=== PATIENT | female | born 1950 | race Caucasian/White ===

== ENCOUNTER 2016-12-12 12:36 | Inpatient (IN) | payer MEDICARE, MEDICAID ==
[~2016-12-12] VITALS: Ht 165.1 cm; Wt 54.4 kg
[2016-12-12 14:30] VITALS: BP 123/63
[2016-12-12] MEDS ORDERED: OXYC10TA49 PO (15:02)
[2016-12-12] MEDS ORDERED: PREG100C PO (15:02)
[2016-12-12] MEDS ORDERED: NICO1PAT28 TD (15:02)
[2016-12-12] MEDS ORDERED: QUET100T PO (15:02)
[2016-12-12] MEDS ORDERED: TIZA4TAB4 PO (15:02)
[2016-12-12] MEDS ORDERED: TRAZ-147 PO (15:02)
[2016-12-12] MEDS ORDERED: TEMA15CA5 PO (15:02)
[2016-12-12] MEDS ORDERED: PANT40TA4 PO (15:02)
[2016-12-12] MEDS ORDERED: OXYC15TA2 PO (15:02)
[2016-12-12] MEDS ORDERED: SIMV10TA6 PO (15:02)
[2016-12-12] MEDS ORDERED: QUET25TA PO (15:04)
[2016-12-12] MEDS ORDERED: IPRA3AMP IH (15:29)
[2016-12-12] MEDS ORDERED: ENOX40DI SQ (15:29)
[2016-12-12] MEDS ORDERED: ALBU2.5V13 IH (15:29)
[2016-12-12] MEDS ORDERED: ONDA4TAB10 IVP (15:29)
[2016-12-12] MEDS ORDERED: OXYCODONE HCL 20 MG TAB.SR.12H PO SCH (15:30)
[2016-12-12] MEDS ORDERED: HYDROMORPHONE 1 MG/1 ML DISP.SYRIN IV ONE (15:45)
[2016-12-12] MEDS ORDERED: KETOROLAC TROMETHAMINE 30 MG INJ IVP STA (18:53)
[2016-12-12] MEDS ORDERED: KETOROLAC TROMETHAMINE 15 MG INJ IVP STA (18:59)
[2016-12-12] MEDS ORDERED: LORAZEPAM 1 MG TABLET PO PRN (19:15)
--- NOTE | 2016-12-12 19:30 | NUR ---
NEW ADMISSION. Received report from CHINYERE Rondon. Received patient in bed. Patient is alert and oriented verbally responsive. Able to make needs known. No c/o pain and discomfort at this time. No acute distress. No SOB. Patient kept clean and dry. Dressing intact with LALIT wrapped around right foot. No pitting edema noted. IV access on left hand. No infiltration noted. No redness or swelling. Dressing intact. Dr. Lewis in facility to evaluate patient. All needs attended to promptly. Call light within reach. Will continue to monitor.
[2016-12-12] MEDS ORDERED: PANTOPRAZOLE SODIUM 40 MG TABLET.DR PO PRN (19:45)
[2016-12-12] MEDS ORDERED: HYDROMORPHONE 2 MG/1 ML DISP.SYRIN IV STA (19:58)
[2016-12-12] MEDS ORDERED: MAGNESIUM HYDROXIDE 30 ML LIQUID UDC PO STA (20:09)
[2016-12-12] MEDS ORDERED: diphenhydrAMINE 25 MG CAP PO ONE (20:30)
--- NOTE | 2016-12-12 20:39 | NUR ---
Patient complaining of severe pain to right foot surgical site. Patient hysterically crying, grasping site and saying she is in a lot of pain. Assessed patient. Pain level is 9/10. Spoke to patient and tried to help calm her down. Dr. Lewis on unit and made aware of patients pain. MD evaluated patient with orders to give Dilaudid 2mg IV STAT x1. MD also ordered to Hold Restoril tonight and administer Ativan 1mg instead. New orders noted and carried out. Patient tolerated medication well. All needs attended to promptly. Call light within reach. Will continue to monitor.
[2016-12-12] MEDS: TRAZODONE 100 MG TABLET PO SCH (20:42)
[2016-12-12] MEDS: TIZANIDINE HCL 4 MG TABLET PO SCH (20:42)
[2016-12-12] MEDS: QUETIAPINE FUMARATE 100 MG TABLET PO SCH (20:42)
[2016-12-12] MEDS: SENNOSIDES 1 TABLET PO SCH (20:42)
[2016-12-12] MEDS ORDERED: DOXEPIN 10 MG CAPSULE PO SCH (21:00)
[2016-12-12] MEDS ORDERED: TEMAZEPAM 15 MG CAPSULE PO SCH (21:00)
[2016-12-12 21:41] VITALS: BP 145/80
[2016-12-13] MEDS: OXYCODONE HCL 20 MG TAB.SR.12H PO SCH ×2 (00:29→06:52)
[2016-12-13] MEDS: HYDROMORPHONE 1 MG/1 ML DISP.SYRIN IV PRN ×2 (04:56→09:28)
--- NOTE | 2016-12-13 04:56 | NUR ---
Patient woke up c/o pain. Pain level of 03/15. Dilaudid 1mg IVP give as ordered. Tolerated well. Breathing normally. All needs attended to promptly. Call light within reach. Will continue to monitor. Addendum: 12/13/16 at 0535 by SARA PEPE RN Patient sleeping comfortably at this time. Breathing normally. All needs attended to promptly. Call light within reach. Will continue to monitor.
--- NOTE | 2016-12-13 06:54 | NUR ---
Patient is awake and verbally responsive. Able to make needs known. Patient in no acute distress. No SOB. Breathing normally. AM care provided. Patient noted to be facial grimacing and crying. Verbalizes that she is in pain. Pain level of 9/10 and surgical site. Scheduled Oxycontin 20mg given. Tolerated well. Kept clean and dry. All needs attended to promptly. Call light within reach. Will continue to monitor.
[2016-12-13 08:00] VITALS: BP 135/78
[2016-12-13] MEDS ORDERED: SIMVASTATIN 10 MG TABLET PO SCH (09:00)
[2016-12-13] MEDS: ENOXAPARIN SODIUM 40 MG/0.4 ML DISP.SYRIN SQ SCH (09:00)
--- NOTE | 2016-12-13 09:00 | NUR ---
Patient was received awake sitting up in bed c/o pain in her right upper leg . She is alert and oriented x 2-3. She is on room air. Patient right leg is with and paulo wrap from surgery. Will continue to monitor the patient and address any needs she may have today.
[2016-12-13] MEDS: NICOTINE 21 MG/24HR PATCH TD SCH (09:27)
[2016-12-13] MEDS: PREGABALIN 100 MG CAPSULE PO SCH ×3 (09:27→18:04)
[2016-12-13] MEDS: QUETIAPINE FUMARATE 25 MG TABLET PO SCH ×3 (09:27→18:04)
[2016-12-13] MEDS: TIZANIDINE HCL 4 MG TABLET PO SCH ×2 (09:27→21:03)
[2016-12-13] MEDS: SENNOSIDES 1 TABLET PO SCH (09:38)
--- NOTE | 2016-12-13 09:40 | NUR ---
Called to the patient 's room , patient is crying c/o pain 9/10 in her right leg . Patient was medicated at this time from the PRN medication list. Patient refused to have nonmedication measures such as reposition or ice. Will continue to reassess patient for pain.
[2016-12-13] MEDS: HYDROMORPHONE HCL 2 MG TABLET PO PRN ×2 (10:46→14:48)
--- NOTE | 2016-12-13 10:50 | NUR ---
Dr. Lewis is on the floor at this time , he ordered for the patient to have Ativan 1mg and Dilaudid 4mg at this time . Medications given . Also he made changes with patient medication.
--- NOTE | 2016-12-13 11:00 | NUR ---
Order was placed for the patient to start Fentanyl Patch 50mcg. Pharmacist on floor at this time stated the dose was high. Dr. Lewis is on the floor at this time. He informed the pharmacist verbally , this is the dose he would like the patient to start with. Consulted with charge nurse Jeri and warehouse and receiving supervisor Bella. Was told by the warehouse and receiving supervisor to go with what the doctor ordered.
--- NOTE | 2016-12-13 11:36 | NUR ---
Patient refused Lovonox this am . Doctor made aware.
--- NOTE | 2016-12-13 11:40 | NUR ---
Patient states her pain is much better. She is working with PT at this time
[2016-12-13] MEDS: FENTANYL 50 MCG/HR PATCH TD SCH (12:20)
--- NOTE | 2016-12-13 13:20 | NUR ---
Patient is asleep at this time but she is arousable. States pain is not as bad
--- NOTE | 2016-12-13 14:20 | NUR ---
Patient is asleep but arousable BP is 130/78, HR 82 . Patient is on a new pain patch . Will continue to monitor the patient vital signs as well as pain,
--- NOTE | 2016-12-13 14:49 | NUR ---
Patient was asleep at 1300 , did not wake patient up. She woke up at this time and wanted her Lyrica and Quetiepine
--- NOTE | 2016-12-13 14:52 | NUR ---
Patient c/o pain 9/10 in right thigh. Pain medcation given from the PRN list at this time
--- NOTE | 2016-12-13 16:35 | NUR ---
Patient was asleep at 1300 so she did not get her 1300 dose of Lyrica , or Seroq. Gave medication late at 1449 when the patient woke up and asked to take them . Dr. Ng textile conversion manager was called and made aware.
--- NOTE | 2016-12-13 16:40 | NUR ---
Patient c/o pain and asked for more Dilaudid pills. Informed patient it was not time for any to take more pill. Offer patient to be reposition and also offered ice for leg. Patient refused.
--- NOTE | 2016-12-13 18:23 | NUR ---
Patient pulse ox at 1800 93% on room air.
[2016-12-13 20:50] VITALS: BP 105/63
[2016-12-13] MEDS: QUETIAPINE FUMARATE 100 MG TABLET PO SCH (21:03)
[2016-12-13] MEDS: TRAZODONE 100 MG TABLET PO SCH (21:03)
[2016-12-14] MEDS: HYDROMORPHONE HCL 2 MG TABLET PO PRN ×4 (04:30→21:34)
--- NOTE | 2016-12-14 06:51 | NUR ---
Patient alert and able to let needs known, slept well throughout the night. Showed no signs of respiratory distress, c/o pain and medication was given PO with relief. Maintained clean and dry, call light within reach, all needs attended to.
--- NOTE | 2016-12-14 08:10 | NUR ---
RECEIVED PATIENT ASLEEP IN BED. NO S/S OF DISTRESS. CALL LIGHT WITHIN REACH. SIDE RAILS X2. WILL CONTINUE TO MONITOR.
[2016-12-14 08:12] LABS: BASOPHILS % (AUTO) 0.2 % (0.0-2.0); EOSINOPHILS # (AUTO) 0.2 K/uL (0.0-0.7); EOSINOPHILS % (AUTO) 1.6 % (0.0-7.0); HEMATOCRIT 29.9 % (37-47); HEMOGLOBIN 10.3 G/DL (12.0-16.0); LYMPHOCYTES # (AUTO) 2.8 K/UL (0.8-4.8); LYMPHOCYTES % (AUTO) 23.4 % (20.5-51.5); MEAN CORPUSCULAR HEMOGLOBIN 32.7 UUG (27.0-31.0); MEAN CORPUSCULAR HGB CONC 34 g/dL (32.0-37.0); MEAN CORPUSCULAR VOLUME 95.2 FL (81.0-99.0); MONOCYTES # (AUTO) 1.2 K/UL (0.1-1.30); MONOCYTES % (AUTO) 10.1 % (0.0-11.0); NEUTROPHILS # (AUTO) 7.8 K/UL (1.8-8.9); NEUTROPHILS % (AUTO) 64.7 % (38.5-71.5); PLATELET COUNT (AUTO) 482 K/UL (150-450); RED BLOOD CELL COUNT(AUTO) 3.14 MIL/UL (4.2-5.4)
[2016-12-14 08:29] VITALS: BP 138/83
[2016-12-14 08:36] LABS: THYROID STIMULATING HORMONE 1.481 mIU/mL (0.358-3.740)
[2016-12-14 08:53] LABS: BILIRUBIN,TOTAL 0.3 mg/dL (0.2-1.0); CREATININE 0.5 mg/dL (0.6-1.3); MAGNESIUM 1.8 mg/dL (1.8-2.4); PHOSPHOROUS 4.2 mg/dL (2.5-4.9); POTASSIUM 3.6 mmol/L (3.5-5.1)
[2016-12-14] MEDS: ENOXAPARIN SODIUM 40 MG/0.4 ML DISP.SYRIN SQ SCH (09:00)
[2016-12-14] MEDS: TIZANIDINE HCL 4 MG TABLET PO SCH ×2 (09:09→20:43)
[2016-12-14] MEDS: QUETIAPINE FUMARATE 25 MG TABLET PO SCH ×3 (09:09→16:55)
[2016-12-14] MEDS: SENNOSIDES 1 TABLET PO SCH (09:09)
[2016-12-14] MEDS: NICOTINE 21 MG/24HR PATCH TD SCH (09:09)
[2016-12-14] MEDS: PREGABALIN 100 MG CAPSULE PO SCH ×3 (09:09→16:55)
[2016-12-14] MEDS: HYDROMORPHONE 1 MG/1 ML DISP.SYRIN IV PRN (09:31)
--- NOTE | 2016-12-14 09:43 | NUR ---
PATIENT IS AWAKE IN CHAIR TOLERATED BREAKFAST WELL. CRYING AND UPSET. PATIENT REFUSED TO TAKE LEVONOX SQ, EVEN AFTER EXPLAINING BENEFITS. OFFERED DILAUDID PO BUT REFUSED AND SAID "IT DOES NOT WORK." PRN IV PAIN MEDICATIONS GIVEN.
--- NOTE | 2016-12-14 12:00 | NUR ---
SEEN AND EXAMINED BY DR. ALSTON. DR. ALSTON WAS MADE KNOWN ABOUT HER PREVIOUS DIAGNOSIS OF OPIOID ADDICTION, FORM ATTACHED IN CHART. DR. ALSTON INFORMED PATIENT ABOUT TAPERING DOWN DILAUDID IV AND ORAL MEDICATIONS, DR ORDERED PRESCRIBED.
[2016-12-14] MEDS ORDERED: POTASSIUM CHLORIDE 20 MEQ TAB.PRT.SR PO ONE (13:00)
[2016-12-14 13:43] LABS: *BILIRUBIN,URIN NEGATIVE (NEGATIVE); *BLOOD, URINE NEGATIVE (NEGATIVE); *CLARITY,URINE CLEAR (CLEAR); *COLOR,URINE YELLOW (YELLOW); *KETONES,URINE NEGATIVE (NEGATIVE); *PROTEIN,URINE NEGATIVE (NEGATIVE); LEUKOCYTE ESTERASE ,URINE NEGATIVE (NEGATIVE); NITRITE, URINE NEGATIVE (NEGATIVE); UGLUCOSE NEGATIVE (NEGATIVE)
[2016-12-14 13:57] LABS: BACTERIA,URINE FEW /HPF (NONE SEEN); RBC,URINE 0-3 /HPF (0-3); WBC,URINE 0-3 /HPF (0-3)
[2016-12-14 13:58] LABS: SQUAMOUS EPITHELIAL CELL,UR FEW /HPF (NONE SEEN)
[2016-12-14] MEDS ORDERED: HYDROMORPHONE 1 MG/1 ML DISP.SYRIN IV PRN (16:00)
--- NOTE | 2016-12-14 16:39 | NUR ---
DRESSING CHANGED OVER SURGICAL SITE DONE. PICTURES TAKEN AND ATTACHED TO CHART.
[2016-12-14] MEDS ORDERED: BISACODYL 5 MG TABLET.DR PO PRN (18:00)
--- NOTE | 2016-12-14 18:00 | NUR ---
PATIENT ANXIOUS AND STATED SHE WANTED HER ATIVAN. PRN MEDICATIONS GIVEN ORDERED.
[2016-12-14] MEDS: LORAZEPAM 1 MG TABLET PO PRN (18:14)
[2016-12-14] MEDS: QUETIAPINE FUMARATE 100 MG TABLET PO SCH (20:43)
[2016-12-14] MEDS: SIMVASTATIN 10 MG TABLET PO SCH (20:43)
[2016-12-14] MEDS: TRAZODONE 100 MG TABLET PO SCH (20:43)
[2016-12-14 21:56] VITALS: BP 138/84
[2016-12-15] MEDS: HYDROMORPHONE HCL 2 MG TABLET PO PRN ×5 (06:53→22:27)
--- NOTE | 2016-12-15 06:53 | NUR ---
Patient slept well throughout the night after pain medication was administered, showed no signs of respiratory distress. Maintained clean and dry throughout the night, call light within reach, all needs attended to.
[2016-12-15] MEDS ORDERED: HYDROMORPHONE 1 MG/1 ML DISP.SYRIN IM PRN (07:00)
[2016-12-15 08:23] VITALS: BP 136/72
--- NOTE | 2016-12-15 08:30 | NUR ---
Received patient asleep in bed. No s/s of distress. Call light within reach. Bed alarm on. Side rails up x2.
[2016-12-15] MEDS: ENOXAPARIN SODIUM 40 MG/0.4 ML DISP.SYRIN SQ SCH (09:00)
[2016-12-15] MEDS: SENNOSIDES 1 TABLET PO SCH (09:35)
[2016-12-15] MEDS: QUETIAPINE FUMARATE 25 MG TABLET PO SCH ×3 (09:35→18:12)
[2016-12-15] MEDS: CYANOCOBALAMIN 1,000 MCG TABLET PO SCH (09:36)
[2016-12-15] MEDS: PREGABALIN 100 MG CAPSULE PO SCH ×3 (09:36→18:12)
[2016-12-15] MEDS: LORAZEPAM 1 MG TABLET PO PRN (09:36)
[2016-12-15] MEDS: NICOTINE 21 MG/24HR PATCH TD SCH (09:36)
[2016-12-15] MEDS: TIZANIDINE HCL 4 MG TABLET PO SCH ×2 (09:36→20:25)
--- NOTE | 2016-12-15 09:45 | NUR ---
PATIENT IS ANXIOUS AND WANTS HER PAIN MEDS. ATIVAN GIVEN. EXPLAINED TO PATIENT THAT PAIN MEDICATIONS IS NOT DUE AT THIS TIME.
--- NOTE | 2016-12-15 13:00 | NUR ---
PATIENT VISITED BY PARTNER WENT AROUND THE UNIT AND DINING ROOM VIA WHEELCHAIR WITH PARTNER. STILL COMPLAINS OF PAIN OVER RIBS, BACK AND RIGHT LEG.
--- NOTE | 2016-12-15 19:30 | NUR ---
Received patient awake on her bed, no s/s of distress. Call light within reach. Will continue to monitor.
[2016-12-15] MEDS: QUETIAPINE FUMARATE 100 MG TABLET PO SCH (20:25)
[2016-12-15] MEDS: TRAZODONE 100 MG TABLET PO SCH (20:25)
[2016-12-15] MEDS: SIMVASTATIN 10 MG TABLET PO SCH (20:42)
[2016-12-15] MEDS ORDERED: SIMVASTATIN 10 MG TABLET ONE (20:44)
[2016-12-15 22:07] VITALS: BP 122/78
[2016-12-16] MEDS: HYDROMORPHONE HCL 2 MG TABLET PO PRN ×4 (06:18→19:24)
--- NOTE | 2016-12-16 06:40 | NUR ---
Patient went back to sleep after taking PRN Dilaudid 6mg as ordered. Slept well through the night. Call light kept within reach. Needs attended. Due meds given. Endorsed accordingly.
[2016-12-16] MEDS ORDERED: HYDROMORPHONE 1 MG/1 ML DISP.SYRIN IM PRN (07:00)
[2016-12-16] MEDS: ALBUTEROL SULFATE 2.5 MG/ 0.5 ML NEBU IH SCH ×4 (07:45→19:30)
--- NOTE | 2016-12-16 07:47 | NUR ---
PT RECEIVED AWAKE ALERT RESPONSIVE ON ROOM AIR SHOWING NO SIGNS OF SOB OR RESPIRATORY DISTRESS. PT STATED HER BREATHING HAS BEEN FINE AND DID NOT WANT A BREATHING TX. PT APPEARS COMFORTABLE.
[2016-12-16 08:00] VITALS: BP 128/70
[2016-12-16] MEDS: CYANOCOBALAMIN 1,000 MCG TABLET PO SCH (08:42)
[2016-12-16] MEDS: QUETIAPINE FUMARATE 25 MG TABLET PO SCH ×3 (08:42→17:18)
[2016-12-16] MEDS: SENNOSIDES 1 TABLET PO SCH (08:42)
[2016-12-16] MEDS: PREGABALIN 100 MG CAPSULE PO SCH ×3 (08:42→17:18)
[2016-12-16] MEDS: TIZANIDINE HCL 4 MG TABLET PO SCH ×2 (08:42→21:06)
[2016-12-16] MEDS: FENTANYL 50 MCG/HR PATCH TD SCH (08:43)
[2016-12-16] MEDS: NICOTINE 21 MG/24HR PATCH TD SCH (08:43)
[2016-12-16] MEDS: ENOXAPARIN SODIUM 40 MG/0.4 ML DISP.SYRIN SQ SCH (08:57)
[2016-12-16] MEDS ORDERED: FENTANYL 50 MCG/HR PATCH TD SCH (09:00)
[2016-12-16] MEDS: LORAZEPAM 1 MG TABLET PO PRN (09:48)
--- NOTE | 2016-12-16 11:51 | NUR ---
Manager Electronic SW met with patient at [facility] to assess pt needs and provide support. The patient is a 66 year old female admitted for rehab after undergoing surgery for femur fracture. The patient was laying in her bed during the interview. She was alert and oriented to person. The patient was calm, during the interview, however she was very lethargic. The patient appeared to have tardive dyskinesia and had involuntary tongue thrusting. She was unable to fully participate in the interview and was only able to answer select questions. The patient stated that she is now at [facility] in order to gain back her independence and mobility. The patient acknowledged her condition and the need for intervention. The patient stated that she has strong social support from her 24 hour caregiver, Felix Varela . Social history: The patient stated that she was born and raised in [place], [place]. She stated that she was raised by both of her parents. The patient completed high school. 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 She stated that she had a daughter who was killed in an automobile accident when she was 15 years old. The patient stated that she has been in a relationship with someone for 14 years but did not disclose with whom. The patient denied any history of abuse or domestic violence. The patient denied any history of drug or alcohol abuse, however there may be a history of prescription pill abuse. The patient also stated that she smokes cigarettes. SW provided patient with referrals for substance abuse and was referred to [facility] , [facility] , and [facility] . The patient stated that she would like to return home with her caregiver upon discharge. SW engaged in active listening and provided supportive counseling during the interview to address patient's depressive symptoms related to her decline in functioning. SW will continue to address issues of loss related to recent hospitalization. SW will encourage compliance with rehab goals. SW will be available as needed.
--- NOTE | 2016-12-16 19:01 | NUR ---
pt still asks for pain meds. pain meds given as scheduled. monitored for side effects.provided commode as recommended by PT. pt still cries for pain meds. pt adhered to medications and adhered to therapy. Vitals within normal limits. will endorse instructions to learning facilitator nurse about pts impulsiveness to get up on her on.
--- NOTE | 2016-12-16 19:10 | NUR ---
Report received from CHINYERE Rondon. PT currently awake in supine position, was crying the moment she saw us, c/o of 9/10 aching, non radiating pain at the surgical site at right leg, dressing intact. Administered Dilaudid 4mg/po.Pt requested to have 6 mg/po instead. Instructed to wait till 4mg/po to kick in and will re-evaluate pain again.
--- NOTE | 2016-12-16 20:23 | NUR ---
Pt awake, alert. No respiratory distress noted. Pt refused HHN tx. CHINYERE Herring notified.
--- NOTE | 2016-12-16 20:45 | NUR ---
Assessment done, given night meds,swallowed pills w/o difficulty, pt able to transfer to bedside commode by herself, urinated. No BM noted.
[2016-12-16] MEDS: SIMVASTATIN 10 MG TABLET PO SCH (21:05)
[2016-12-16] MEDS: QUETIAPINE FUMARATE 100 MG TABLET PO SCH (21:05)
[2016-12-16] MEDS: TRAZODONE 100 MG TABLET PO SCH (21:05)
[2016-12-16 21:31] VITALS: BP 133/78
[2016-12-17] MEDS: ALBUTEROL SULFATE 2.5 MG/ 0.5 ML NEBU IH SCH ×4 (01:30→19:30)
--- NOTE | 2016-12-17 01:30 | NUR ---
Given Dilaudi 6mg/per pt's request, observed huge stool at the bedside commode, per pt she stated that she transferred to bedside commode by herself w/o any problem.
[2016-12-17] MEDS: HYDROMORPHONE HCL 2 MG TABLET PO PRN ×3 (01:32→12:08)
--- NOTE | 2016-12-17 05:00 | NUR ---
Remained asleep, pt turned to side by herself. Dressing at rt leg remained intact.Breathing normally.Continue monitor.
--- NOTE | 2016-12-17 07:00 | NUR ---
Report to CHINYERE Rondon
[2016-12-17 08:00] VITALS: BP 117/74
[2016-12-17] MEDS: SENNOSIDES 1 TABLET PO SCH (08:51)
[2016-12-17] MEDS: PREGABALIN 100 MG CAPSULE PO SCH ×3 (08:51→17:01)
[2016-12-17] MEDS: NICOTINE 21 MG/24HR PATCH TD SCH (08:53)
[2016-12-17] MEDS: QUETIAPINE FUMARATE 25 MG TABLET PO SCH ×3 (08:53→17:00)
[2016-12-17] MEDS: CYANOCOBALAMIN 1,000 MCG TABLET PO SCH (08:53)
[2016-12-17] MEDS: ENOXAPARIN SODIUM 40 MG/0.4 ML DISP.SYRIN SQ SCH (08:58)
[2016-12-17] MEDS: TIZANIDINE HCL 4 MG TABLET PO SCH ×2 (08:58→20:09)
--- NOTE | 2016-12-17 09:07 | NUR ---
PT NOT AVAIL AT THIS TIME, PT WORKING WITH THERAPY.
--- NOTE | 2016-12-17 14:43 | NUR ---
IDT MEETING 12/17/16
[2016-12-17] MEDS: LORAZEPAM 1 MG TABLET PO PRN (15:36)
[2016-12-17] MEDS ORDERED: HYDROMORPHONE HCL 2 MG TABLET PO PRN (18:30)
--- NOTE | 2016-12-17 19:02 | NUR ---
pt checked by dr duncan. pt is suspected to have khalif his friend bring some medications that causes her drowsiness.dr duncan reduced the dose of dilaudid. will continue to monitor for distress.
[2016-12-17 20:05] VITALS: BP 131/74
[2016-12-17] MEDS: TRAZODONE 100 MG TABLET PO SCH (20:09)
[2016-12-17] MEDS: SIMVASTATIN 10 MG TABLET PO SCH (20:09)
[2016-12-17] MEDS: QUETIAPINE FUMARATE 100 MG TABLET PO SCH (20:09)
[2016-12-17 22:10] LABS: *AMPHETAMINE, URINE NEGATIVE (NEGATIVE); *BARBITURATE, URINE NEGATIVE (NEGATIVE); *CANNABINOID, URINE POSITIVE (NEGATIVE); *COCCAINE, URINE NEGATIVE (NEGATIVE); *OPIATE, URINE POSITIVE (NEGATIVE); *PHENCYCLIDINE SCREEN,URINE NEGATIVE (NEGATIVE)
[2016-12-18] MEDS: ALBUTEROL SULFATE 2.5 MG/ 0.5 ML NEBU IH SCH ×4 (01:26→18:44)
--- NOTE | 2016-12-18 06:39 | NUR ---
Patient alert and oriented and verbally able to let needs known, slept the whole night with no signs of pain or discomfort, no signs of respiratory distress. Call light within reach, all needs attended to.
--- NOTE | 2016-12-18 07:00 | NUR ---
Pt Received in bed, a/o x4, pt c/o of nausea, zofran Po administered by noc shift nurse. Will con't to monitor effectiveness.
[2016-12-18 07:54] VITALS: BP 127/66
[2016-12-18] MEDS: ENOXAPARIN SODIUM 40 MG/0.4 ML DISP.SYRIN SQ SCH ×2 (09:00→09:04)
[2016-12-18] MEDS: PREGABALIN 100 MG CAPSULE PO SCH ×3 (09:02→16:16)
[2016-12-18] MEDS: SENNOSIDES 1 TABLET PO SCH (09:02)
[2016-12-18] MEDS: NICOTINE 21 MG/24HR PATCH TD SCH (09:02)
[2016-12-18] MEDS: TIZANIDINE HCL 4 MG TABLET PO SCH ×2 (09:02→21:04)
[2016-12-18] MEDS: QUETIAPINE FUMARATE 25 MG TABLET PO SCH ×3 (09:02→16:16)
[2016-12-18] MEDS: LORAZEPAM 1 MG TABLET PO PRN (09:02)
[2016-12-18] MEDS: CYANOCOBALAMIN 1,000 MCG TABLET PO SCH (09:02)
[2016-12-18] MEDS ORDERED: HYDROMORPHONE HCL 2 MG TABLET PO ONE (16:15)
--- NOTE | 2016-12-18 16:15 | NUR ---
Notified Dr. Lewis regarding patient's complain of pain but no PRN pain medication available. MD ordered dilaudid 4mg PO x 1. ordered carried out. Patient made aware.
--- NOTE | 2016-12-18 16:23 | NUR ---
Pain Pt screaming with pain, states she has pain 9/10 on lower back and right leg. Dr. Lewis, made aware and received orders by charge nurse. dilaudid 4mg po x1.
--- NOTE | 2016-12-18 18:00 | NUR ---
Dilaudid 4mg PO given X1 for pain as order. pt c/o of pain 9/10 scale to lower back and right leg. Will con't to monitor.
--- NOTE | 2016-12-18 18:13 | NUR ---
End of shift pt in bed, a/o x3, methadone dose schedule for 1800 will be endorsed to oncoming nurse, pt received dilaudid 4mg Po at 1800. Call light within reach.
[2016-12-18] MEDS: METHADONE HCL 10 MG TABLET PO SCH (19:09)
[2016-12-18 20:12] VITALS: BP 150/82
[2016-12-18] MEDS ORDERED: TRAZODONE 50 MG TABLET GT SCH (21:00)
[2016-12-18] MEDS ORDERED: TRAZODONE 50 MG TABLET PO SCH (21:00)
[2016-12-18] MEDS: QUETIAPINE FUMARATE 100 MG TABLET PO SCH (21:03)
[2016-12-18] MEDS: TRAZODONE 50 MG TABLET PO SCH (21:03)
[2016-12-18] MEDS: SIMVASTATIN 10 MG TABLET PO SCH (21:04)
[2016-12-19] MEDS: METHADONE HCL 10 MG TABLET PO SCH ×5 (00:14→23:45)
[2016-12-19] MEDS: ALBUTEROL SULFATE 2.5 MG/ 0.5 ML NEBU IH SCH ×4 (00:38→18:40)
--- NOTE | 2016-12-19 06:55 | NUR ---
Patient slept well all night, no signs of distress noted, maintained clean and dry. Call light within reach, all needs attended to.
[2016-12-19 08:00] VITALS: BP 131/75
--- NOTE | 2016-12-19 08:00 | NUR ---
Received patient in bed awake, alert, verbally responsive, coherent, not in any form of acute distress. She denies any pain or discomfort at this time. Environmental safety checks done. Assisted to her needs. Call light placed within reach.
[2016-12-19] MEDS: QUETIAPINE FUMARATE 25 MG TABLET PO SCH ×3 (08:02→16:11)
[2016-12-19] MEDS: CYANOCOBALAMIN 1,000 MCG TABLET PO SCH (08:02)
[2016-12-19] MEDS: PREGABALIN 100 MG CAPSULE PO SCH ×3 (08:02→16:11)
[2016-12-19] MEDS: SENNOSIDES 1 TABLET PO SCH (08:02)
[2016-12-19] MEDS: TIZANIDINE HCL 4 MG TABLET PO SCH ×2 (08:02→20:41)
[2016-12-19] MEDS: NICOTINE 21 MG/24HR PATCH TD SCH (08:04)
[2016-12-19] MEDS: LORAZEPAM 1 MG TABLET PO PRN ×2 (08:18→16:11)
[2016-12-19] MEDS: ENOXAPARIN SODIUM 40 MG/0.4 ML DISP.SYRIN SQ SCH (08:20)
--- NOTE | 2016-12-19 18:00 | NUR ---
Notified Dr. Lewis that patient is too sleepy but arousable with ativan PRN hence MD ordered to hold routine methadone due at 6PM.
[2016-12-19] MEDS: SIMVASTATIN 10 MG TABLET PO SCH (20:41)
[2016-12-19] MEDS: TRAZODONE 50 MG TABLET PO SCH (20:41)
[2016-12-19] MEDS: QUETIAPINE FUMARATE 100 MG TABLET PO SCH (20:42)
[2016-12-19 21:14] VITALS: BP 147/44
--- NOTE | 2016-12-19 22:00 | NUR ---
Pt denies pain/discomfort. Resting comfortably in bed. Plans of care and safety measures reviewed with pt, expresses understanding.
--- NOTE | 2016-12-20 02:00 | NUR ---
Woke up c/o hunger. Enjoyed sandwich snacks. HS care rendered. Right leg dressing remains clean and intact. Continues to sleep.
--- NOTE | 2016-12-20 06:30 | NUR ---
Stable and restful night. Continues to sleep; call faria within reach.
[2016-12-20] MEDS: METHADONE HCL 10 MG TABLET PO SCH ×3 (06:36→17:11)
[2016-12-20] MEDS: ALBUTEROL SULFATE 2.5 MG/ 0.5 ML NEBU IH SCH ×3 (07:35→19:11)
[2016-12-20 08:00] VITALS: BP 138/92
[2016-12-20] MEDS: PREGABALIN 100 MG CAPSULE PO SCH ×3 (08:53→17:10)
[2016-12-20] MEDS: TIZANIDINE HCL 4 MG TABLET PO SCH ×2 (08:53→20:56)
[2016-12-20] MEDS: CYANOCOBALAMIN 1,000 MCG TABLET PO SCH (08:53)
[2016-12-20] MEDS: SENNOSIDES 1 TABLET PO SCH (08:53)
[2016-12-20] MEDS: QUETIAPINE FUMARATE 25 MG TABLET PO SCH ×3 (08:53→17:10)
[2016-12-20] MEDS: NICOTINE 21 MG/24HR PATCH TD SCH (08:54)
[2016-12-20] MEDS: LORAZEPAM 0.5 MG TABLET PO PRN (10:02)
--- NOTE | 2016-12-20 19:30 | NUR ---
Patient sleeping in bed with no s/s of distress. Respirations even and unlabored. Call light within reach. Will continue to monitor.
[2016-12-20 20:50] VITALS: BP 133/78
[2016-12-20] MEDS: QUETIAPINE FUMARATE 100 MG TABLET PO SCH (20:56)
[2016-12-20] MEDS: TRAZODONE 50 MG TABLET PO SCH (20:56)
[2016-12-20] MEDS: SIMVASTATIN 10 MG TABLET PO SCH (20:57)
[2016-12-21] MEDS: METHADONE HCL 10 MG TABLET PO SCH ×4 (00:07→17:32)
--- NOTE | 2016-12-21 00:11 | NUR ---
Methadone 10mg taken from Pyxis. Half tab given to patient for 5mg dose at 0000 as ordered. The other half wasted with CHINYERE Carter as witness.
[2016-12-21] MEDS: ALBUTEROL SULFATE 2.5 MG/ 0.5 ML NEBU IH SCH ×3 (00:56→19:25)
[2016-12-21] MEDS: LORAZEPAM 0.5 MG TABLET PO PRN ×2 (03:41→13:36)
--- NOTE | 2016-12-21 06:43 | NUR ---
Patient went back to sleep afetr taking AM meds. Ativan given at 0345 per patient's request. Slept well during the night. Verbalized some relief after pain interventions. Call light kept within reach. Frequent checks done. Needs attended. Due meds given. Endorsed accordingly.
[2016-12-21 08:00] VITALS: BP 129/70
[2016-12-21] MEDS: TIZANIDINE HCL 4 MG TABLET PO SCH ×2 (08:49→22:01)
[2016-12-21] MEDS: QUETIAPINE FUMARATE 25 MG TABLET PO SCH ×3 (08:49→17:25)
[2016-12-21] MEDS: CYANOCOBALAMIN 1,000 MCG TABLET PO SCH (08:49)
[2016-12-21] MEDS: NICOTINE 21 MG/24HR PATCH TD SCH (08:49)
[2016-12-21] MEDS: PREGABALIN 100 MG CAPSULE PO SCH ×3 (08:49→17:25)
[2016-12-21] MEDS: SENNOSIDES 1 TABLET PO SCH (08:49)
--- NOTE | 2016-12-21 12:11 | NUR ---
PT ASKED FOR PAIN MEDS. GAVE METHADONE. PT REQUESTS ATIVAN BUT BASED ON NURSING JUDGEMENT PATIENT IS ON THERAPY AND IS DROWSY SO WITH HELD ATIVAN .
[2016-12-21] MEDS: RIVAROXABAN 10 MG TABLET PO SCH (18:22)
[2016-12-21] MEDS: TRAZODONE 50 MG TABLET PO SCH (22:00)
[2016-12-21] MEDS: QUETIAPINE FUMARATE 100 MG TABLET PO SCH (22:01)
[2016-12-21] MEDS: SIMVASTATIN 10 MG TABLET PO SCH (22:05)
[2016-12-22] MEDS: ALBUTEROL SULFATE 2.5 MG/ 0.5 ML NEBU IH SCH ×4 (00:33→19:19)
[2016-12-22] MEDS: METHADONE HCL 10 MG TABLET PO SCH ×5 (00:38→23:56)
[2016-12-22 08:00] VITALS: BP 116/67
--- NOTE | 2016-12-22 08:15 | NUR ---
Received patient awake. No S/S of distress. No complaints of discomfort at this time. Call light within reach. Encouraged patient to call for needs. Side rails up x2.
[2016-12-22] MEDS: TIZANIDINE HCL 4 MG TABLET PO SCH ×2 (09:25→20:37)
[2016-12-22] MEDS: QUETIAPINE FUMARATE 25 MG TABLET PO SCH ×3 (09:25→17:05)
[2016-12-22] MEDS: CYANOCOBALAMIN 1,000 MCG TABLET PO SCH (09:25)
[2016-12-22] MEDS: NICOTINE 21 MG/24HR PATCH TD SCH (09:25)
[2016-12-22] MEDS: PREGABALIN 100 MG CAPSULE PO SCH ×3 (09:25→17:05)
[2016-12-22] MEDS: SENNOSIDES 1 TABLET PO SCH (09:26)
--- NOTE | 2016-12-22 09:30 | NUR ---
Patient agitated, irritable, and moaning. She is asking for pain medications however, not due at this time. PRN Ativan given
[2016-12-22] MEDS: LORAZEPAM 0.5 MG TABLET PO PRN (09:37)
[2016-12-22] MEDS ORDERED: MAG HYDROX/AL HYDROX/SIMETH 30 ML LIQUID UDC PO PRN (12:30)
[2016-12-22] MEDS ORDERED: ONDANSETRON 4 MG/2 ML VIAL IM PRN (12:30)
--- NOTE | 2016-12-22 12:32 | NUR ---
PATIENT COMPLAINED OF ABDOMINAL PAIN AND NAUSEA, INFORMED DR. DEBI ALCALA. ZOFRAN PRN AND MAALOX PRN ORDERED.
--- NOTE | 2016-12-22 15:31 | NUR ---
Patient verbalized relief of nausea. No vomiting noted. Still with abdominal pain, but tolerable.
[2016-12-22] MEDS: RIVAROXABAN 10 MG TABLET PO SCH (17:18)
--- NOTE | 2016-12-22 19:30 | NUR ---
Received patient watching TV on bed. No s/s of distress, repirations even and unlabored. Verbalizes some pain. Will provide interventions. Call light within reach. Reminded to call for help whenever necessary. Will continue to monitor.
[2016-12-22 20:30] VITALS: BP 101/58
[2016-12-22] MEDS: QUETIAPINE FUMARATE 100 MG TABLET PO SCH (20:37)
[2016-12-22] MEDS: SIMVASTATIN 10 MG TABLET PO SCH (20:37)
[2016-12-22] MEDS: TRAZODONE 50 MG TABLET PO SCH (20:37)
[2016-12-23] MEDS: LORAZEPAM 0.5 MG TABLET PO PRN (01:01)
[2016-12-23] MEDS: ALBUTEROL SULFATE 2.5 MG/ 0.5 ML NEBU IH SCH ×4 (01:17→19:29)
[2016-12-23] MEDS: METHADONE HCL 10 MG TABLET PO SCH ×4 (06:24→23:25)
--- NOTE | 2016-12-23 06:50 | NUR ---
Patient went back to sleep after taking AM meds. No s/s of distress. Respirations even and unlabored. Verbalized some relief from pain meds. Stayed up late. Supervised during ambulation. Due meds given. Needs attended. Call light kept within reach. Frequent checks done especially while awake. Endorsed accordingly.
[2016-12-23 08:00] VITALS: BP 120/62
[2016-12-23] MEDS: QUETIAPINE FUMARATE 25 MG TABLET PO SCH ×3 (08:56→17:12)
[2016-12-23] MEDS: CYANOCOBALAMIN 1,000 MCG TABLET PO SCH (08:56)
[2016-12-23] MEDS: SENNOSIDES 1 TABLET PO SCH (08:56)
[2016-12-23] MEDS: NICOTINE 21 MG/24HR PATCH TD SCH (08:57)
[2016-12-23] MEDS: PREGABALIN 100 MG CAPSULE PO SCH ×3 (08:57→17:13)
[2016-12-23] MEDS: TIZANIDINE HCL 4 MG TABLET PO SCH ×2 (08:57→21:13)
[2016-12-23] MEDS: RIVAROXABAN 10 MG TABLET PO SCH (18:21)
--- NOTE | 2016-12-23 18:55 | NUR ---
pt still complains of pain. no xanax given during shift. pt seen at 1800 was drowsy. no xanax or tylenol given. pt was able to ambulate in wheelchair through hallways. no new orders. pt seen by doctor. pt requested pain meds. no new recommendations as of today.
--- NOTE | 2016-12-23 19:40 | NUR ---
pt seen vomiting. aerial hurricane hunter states that the pt was seen putting her finger in her mouth to induce vomiting. pt complains of stomach pain and doesnt feel good. bp systolic 160s. will continue to reassess patient.
--- NOTE | 2016-12-23 19:45 | NUR ---
ON W/C, ALERT. NO ACUTE DISTRESS NOTED. WITH COMPLAINTS OF VOMITING, OFFERED ICE CHIPS. NO COMPLAINTS OF PAIN NOTED AT THIS TIME. SAFETY INITIATED. WILL CONTINUE TO MONITOR
[2016-12-23 20:58] VITALS: BP 155/82
[2016-12-23] MEDS: TRAZODONE 50 MG TABLET PO SCH (21:13)
[2016-12-23] MEDS: QUETIAPINE FUMARATE 100 MG TABLET PO SCH (21:13)
[2016-12-23] MEDS: SIMVASTATIN 10 MG TABLET PO SCH (21:13)
[2016-12-24] MEDS: ALBUTEROL SULFATE 2.5 MG/ 0.5 ML NEBU IH SCH ×5 (01:19→19:26)
[2016-12-24] MEDS: LORAZEPAM 0.5 MG TABLET PO PRN (02:05)
[2016-12-24] MEDS: METHADONE HCL 10 MG TABLET PO SCH ×3 (06:25→17:49)
--- NOTE | 2016-12-24 06:32 | NUR ---
SLEPT INTERMITTENTLY DURING THE SHIFT. NO ACUTE DISTRESS NOTED. ASSISTED DURING BRP. ALL DUE MEDS GIVEN ORDERED. SAFETY MAINTAINED. NEEDS ATTENDED. CALL LIGHT WITHIN REACH. WILL CONTINUE TO MONITOR
[2016-12-24 08:00] VITALS: BP 102/60
[2016-12-24 08:28] LABS: BASOPHILS % (AUTO) 0.2 % (0.0-2.0); EOSINOPHILS # (AUTO) 0.2 K/uL (0.0-0.7); EOSINOPHILS % (AUTO) 1.8 % (0.0-7.0); HEMATOCRIT 29.9 % (37-47); HEMOGLOBIN 9.7 G/DL (12.0-16.0); LYMPHOCYTES # (AUTO) 2.1 K/UL (0.8-4.8); MEAN CORPUSCULAR HEMOGLOBIN 30.7 UUG (27.0-31.0); MEAN CORPUSCULAR HGB CONC 33 g/dL (32.0-37.0); MEAN CORPUSCULAR VOLUME 94.4 FL (81.0-99.0); MONOCYTES # (AUTO) 0.9 K/UL (0.1-1.30); NEUTROPHILS # (AUTO) 6.1 K/UL (1.8-8.9); PLATELET COUNT (AUTO) 476 K/UL (150-450); RED BLOOD CELL COUNT(AUTO) 3.17 MIL/UL (4.2-5.4); WHITE BLOOD COUNT (AUTO) 9.3 K/UL (4.0-11.2)
[2016-12-24] MEDS: CYANOCOBALAMIN 1,000 MCG TABLET PO SCH (08:31)
[2016-12-24] MEDS: SENNOSIDES 1 TABLET PO SCH (08:31)
[2016-12-24] MEDS: NICOTINE 21 MG/24HR PATCH TD SCH (08:32)
[2016-12-24] MEDS: QUETIAPINE FUMARATE 25 MG TABLET PO SCH ×3 (08:32→17:48)
[2016-12-24] MEDS: PREGABALIN 100 MG CAPSULE PO SCH ×3 (08:32→17:50)
[2016-12-24] MEDS: TIZANIDINE HCL 4 MG TABLET PO SCH ×2 (08:32→20:57)
[2016-12-24 09:04] LABS: ALANINE AMINOTRANSFERASE 14 U/L (14-59); ALKALINE PHOSPHATASE 155 U/L (50-136); ASPARTATE AMINOTRANSFERASE 13 U/L (15-37); BILIRUBIN,TOTAL 0.3 mg/dL (0.2-1.0); CARBON DIOXIDE 28 mmol/L (21-32); CHLORIDE 106 mmol/L (98-107); CREATININE 0.4 mg/dL (0.6-1.3); GLUCOSE 89 mg/dL (74-106); MAGNESIUM 1.8 mg/dL (1.8-2.4); PHOSPHOROUS 3.1 mg/dL (2.5-4.9); POTASSIUM 3.3 mmol/L (3.5-5.1); TOTAL PROTEIN, SERUM 6.2 g/dL (6.4-8.2); UREA NITROGEN, BLOOD 7 mg/dL (7-18)
--- NOTE | 2016-12-24 14:09 | NUR ---
IDT MEETING 12/24/16
--- NOTE | 2016-12-24 14:17 | NUR ---
IDT MEETING 12/24/2016
--- NOTE | 2016-12-24 14:18 | NUR ---
TEAM SUMMARY CONFERENCE 12/24/16
[2016-12-24] MEDS: RIVAROXABAN 10 MG TABLET PO SCH (17:53)
--- NOTE | 2016-12-24 18:31 | NUR ---
pt seen putting finger on mouth to induce vomiting. informed . said to ignore the behavior
[2016-12-24] MEDS ORDERED: POTASSIUM CHLORIDE 20 MEQ TAB.PRT.SR PO ONE (19:45)
--- NOTE | 2016-12-24 19:45 | NUR ---
PATIENT RECEIVED SITTING UP IN BED, NO ACUTE DISTRESS NOTED. PT IS AOX3 COOPERATIVE AND COMPLIANT. DENIES ANY PHYSICAL DISCOMFORT AT THIS TIME. VITAL SIGNS WNL. BED IN LOW AND LOCKED POSITION, CALL LIGHT WITHIN REACH. SAFETY MEASURES MAINTAINED.
[2016-12-24] MEDS: SIMVASTATIN 10 MG TABLET PO SCH (20:57)
[2016-12-24] MEDS: TRAZODONE 50 MG TABLET PO SCH (20:57)
[2016-12-24] MEDS: QUETIAPINE FUMARATE 100 MG TABLET PO SCH (20:57)
[2016-12-24 21:26] VITALS: BP 123/69
--- NOTE | 2016-12-24 22:00 | NUR ---
PATIENT COMPLIANT WITH MEDICATIONS PO AT BEDTIME. ABLE TO MAKE NEEDS KNOWN. NO ACUTE DISTRESS NOTED. WILL CONTINUE TO MONITOR FOR SAFETY.
[2016-12-25] MEDS: METHADONE HCL 10 MG TABLET PO SCH ×4 (00:18→17:00)
[2016-12-25] MEDS ORDERED: POTASSIUM CHLORIDE 20 MEQ TAB.PRT.SR ONE (00:26)
[2016-12-25] MEDS: ALBUTEROL SULFATE 2.5 MG/ 0.5 ML NEBU IH SCH ×4 (00:44→19:30)
--- NOTE | 2016-12-25 02:49 | NUR ---
POTASSIUM AT 0026 NOT GIVEN, PATIENT ASLEEP. WILL NOTIFY MD. NO S/S HYPO/HYPERKALEMIA NOTED. NO ACUTE DISTRESS NOTED. SAFETY MEASURES MAINTAINED.
--- NOTE | 2016-12-25 02:50 | NUR ---
PT SLEEPING IN BED AT THIS TIME, BREATHING UNLABORED. TOILETING OFFERED. WILL CONTINUE TO MONITOR FOR SAFETY.
--- NOTE | 2016-12-25 08:05 | NUR ---
Received patient asleep. Unlabored breathing. Call light within reach
[2016-12-25 08:34] VITALS: BP 119/67
[2016-12-25 08:36] VITALS: BP 199/67
[2016-12-25] MEDS: NICOTINE 21 MG/24HR PATCH TD SCH (08:57)
[2016-12-25] MEDS: QUETIAPINE FUMARATE 25 MG TABLET PO SCH ×3 (08:57→16:59)
[2016-12-25] MEDS: CYANOCOBALAMIN 1,000 MCG TABLET PO SCH (08:57)
[2016-12-25] MEDS: SENNOSIDES 1 TABLET PO SCH (08:57)
[2016-12-25] MEDS: TIZANIDINE HCL 4 MG TABLET PO SCH ×2 (08:57→21:36)
[2016-12-25] MEDS: PREGABALIN 100 MG CAPSULE PO SCH ×3 (08:57→16:59)
--- NOTE | 2016-12-25 09:03 | NUR ---
Patient anxious, verbalizes pain over back and right leg. Offered ice pack but refused. Patient moaning and crying. PRN Ativan given
[2016-12-25] MEDS: LORAZEPAM 0.5 MG TABLET PO PRN (09:06)
[2016-12-25] MEDS: RIVAROXABAN 10 MG TABLET PO SCH (17:01)
--- NOTE | 2016-12-25 19:30 | NUR ---
Received patient resting in bed, no s/s of distress. No complaints of pain at this time. Call light within reach. Will continue to monitor.
--- NOTE | 2016-12-25 19:48 | NUR ---
Pt awake, alert. No respiratory distress noted. Pt refused HHN tx. RN notified.
[2016-12-25] MEDS: QUETIAPINE FUMARATE 100 MG TABLET PO SCH (21:35)
[2016-12-25] MEDS: SIMVASTATIN 10 MG TABLET PO SCH (21:35)
[2016-12-25] MEDS: TRAZODONE 50 MG TABLET PO SCH (21:35)
[2016-12-25 21:38] VITALS: BP 110/61
[2016-12-26] MEDS: ALBUTEROL SULFATE 2.5 MG/ 0.5 ML NEBU IH SCH ×4 (01:30→19:50)
--- NOTE | 2016-12-26 07:01 | NUR ---
Patient still sleeping, no s/s of distress. No complaints of pain at this time. Call light kept within reach. Due meds given. Needs attended. Kept clean and comfortable. Frequent checks done. Frequency of Methadone 5mg PO changed to BID, per Dr. Lewis's orders. Endorsed accordingly.
[2016-12-26] MEDS: SENNOSIDES 1 TABLET PO SCH (08:37)
[2016-12-26] MEDS: QUETIAPINE FUMARATE 25 MG TABLET PO SCH ×3 (08:37→16:25)
[2016-12-26] MEDS: PREGABALIN 100 MG CAPSULE PO SCH ×3 (08:37→16:24)
[2016-12-26] MEDS: METHADONE HCL 10 MG TABLET PO SCH ×2 (08:37→16:24)
[2016-12-26] MEDS: CYANOCOBALAMIN 1,000 MCG TABLET PO SCH (08:37)
[2016-12-26] MEDS: NICOTINE 21 MG/24HR PATCH TD SCH (08:37)
[2016-12-26] MEDS: TIZANIDINE HCL 4 MG TABLET PO SCH ×2 (08:37→21:09)
--- NOTE | 2016-12-26 09:00 | NUR ---
GPS: Patient Received laying in bed anxious, c/o pain over back and right leg. routine pain meds. assisted with adl's.
[2016-12-26 11:10] VITALS: BP 142/65
[2016-12-26] MEDS: RIVAROXABAN 10 MG TABLET PO SCH (17:53)
--- NOTE | 2016-12-26 18:04 | NUR ---
NSG: REMAIN CALM AND COOPERATIVE WITH CARE. NO C/O PAIN OR DISCOMFORT THIS TIME.ASSISTED WITH ADL'S. KEPT CLEAN AND DRY AND COMFORTABLE.
--- NOTE | 2016-12-26 19:30 | NUR ---
Received patient awake, no acute distress noted. Complaints of some pain, will provide interventions. Call light within reach. Will continue to monitor.
[2016-12-26] MEDS: QUETIAPINE FUMARATE 100 MG TABLET PO SCH (21:09)
[2016-12-26] MEDS: SIMVASTATIN 10 MG TABLET PO SCH (21:09)
[2016-12-26] MEDS: TRAZODONE 50 MG TABLET PO SCH (21:10)
[2016-12-27] MEDS: ALBUTEROL SULFATE 2.5 MG/ 0.5 ML NEBU IH SCH ×3 (01:30→13:28)
--- NOTE | 2016-12-27 02:18 | NUR ---
Pt asleep. No sob noted. HHN tx not given. RN Vonda aware.
[2016-12-27] MEDS ORDERED: KETOROLAC TROMETHAMINE 60 MG INJ IM ONE (07:15)
--- NOTE | 2016-12-27 07:15 | NUR ---
Patient received from night court magistrate, resting comfortably in bed. No signs of acute distress noted, respirations even and unlabored on RA. VS WNL, no other verbalized needs at this time. Patient made comfortable, all needs attended to. Safety and fall precautions maintained. Call light within reach.
--- NOTE | 2016-12-27 08:02 | NUR ---
Patient awake with no s/s of distress. Complaints of severe pain this AM. Dr. Lewis made aware, gave orders to provide comfort measures and to continue monitoring until discharge. Discharge orders from Dr. Lewis in place. Call light kept within reach. Frequent checks done. Due meds given. Needs attended. Endorsed accordingly.
[2016-12-27] MEDS: PREGABALIN 100 MG CAPSULE PO SCH ×2 (08:15→12:03)
[2016-12-27] MEDS: METHADONE HCL 10 MG TABLET PO SCH (08:15)
[2016-12-27] MEDS: TIZANIDINE HCL 4 MG TABLET PO SCH (08:15)
[2016-12-27] MEDS: CYANOCOBALAMIN 1,000 MCG TABLET PO SCH (08:15)
[2016-12-27] MEDS: QUETIAPINE FUMARATE 25 MG TABLET PO SCH ×2 (08:15→12:03)
[2016-12-27] MEDS: SENNOSIDES 1 TABLET PO SCH (08:15)
[2016-12-27] MEDS: NICOTINE 21 MG/24HR PATCH TD SCH (08:16)
[2016-12-27 10:07] VITALS: BP 156/108
[2016-12-27] MEDS: LORAZEPAM 0.5 MG TABLET PO PRN (12:03)
--- NOTE | 2016-12-27 16:43 | NUR ---
Received order for discharge, to discharge home today. Patient's family member Felix made aware. All discharge instructions given to patient, including medication list. Prescriptions faxed to patient's pharmacy, confirmed with pharmacy. Patient VS WNL, no other needs at this time. All needs attended to, patient sent with wheelchair. Patient left unit in stable condition via ambulance and professional ambulance staff. MD and mattress spring encaser made aware.
== END 2016-12-27 14:00 | disposition home or self-care (01) | DRG 559 ==
PROVIDERS: ADMIT Physical Medicine & Rehabilitation Pain Medicine; ATTEND Physical Medicine & Rehabilitation Pain Medicine
DX: M97.11XD Periprosthetic fracture around internal prosthetic right knee joint, subsequent encounter (principal); E43 Unspecified severe protein-calorie malnutrition; D68.59 Other primary thrombophilia; F11.20 Opioid dependence, uncomplicated; W18.30XD Fall on same level, unspecified, subsequent encounter; J44.9 Chronic obstructive pulmonary disease, unspecified; G89.29 Other chronic pain; M54.9 Dorsalgia, unspecified; F41.8 Other specified anxiety disorders; F17.210 Nicotine dependence, cigarettes, uncomplicated; K59.00 Constipation, unspecified; K21.9 Gastro-esophageal reflux disease without esophagitis; D64.9 Anemia, unspecified; Z68.23 Body mass index [BMI] 23.0-23.9, adult; D72.829 Elevated white blood cell count, unspecified; E03.9 Hypothyroidism, unspecified; E87.6 Hypokalemia; G89.4 Chronic pain syndrome; W01.0XXD Fall on same level from slipping, tripping and stumbling without subsequent striking against object, subsequent encounter; M81.0 Age-related osteoporosis without current pathological fracture; M54.10 Radiculopathy, site unspecified; I10 Essential (primary) hypertension; K59.09 Other constipation; M19.90 Unspecified osteoarthritis, unspecified site; M54.5 Low back pain; R11.10 Vomiting, unspecified; Z96.641 Presence of right artificial hip joint; Z98.84 Bariatric surgery status; Z88.0 Allergy status to penicillin; Z88.2 Allergy status to sulfonamides; Z88.7 Allergy status to serum and vaccine
CPT/HCPCS: 36415; 70030-TC; 80307; 82306; 83735; 84100; 84443; 85025; 87086; 92507; 92523; 92610; 97110; 97112; 97116; 97530; 97535; A4663; J1170; J1650; J1885; J2405